=== PATIENT | male | born 1970 | race Hispanic/Latino ===

== ENCOUNTER 2024-08-26 14:29 | Emergency (ER) | payer BC | END 2024-08-26 16:19 | disposition home or self-care (01) | LOC: ERS 14:29 | DX: B02.21 Postherpetic geniculate ganglionitis (principal); H72.92 Unspecified perforation of tympanic membrane, left ear; R05.9 Cough, unspecified; I10 Essential (primary) hypertension; Z79.899 Other long term (current) drug therapy | CPT/HCPCS: 71046; 87428 ==